=== PATIENT | male | born 1955 | race Caucasian/White ===

== ENCOUNTER 2021-11-03 21:15 | Inpatient (IN) | payer OTHER ==
[~2021-11-03] VITALS: Ht 182.9 cm; Wt 81.2 kg
--- NOTE | ~2021-11-03 | HC ---
[facility] [place] [address] CONSULTATION Name: NICOLÁS RYAN Room #: 251-P ADM IN M.R.#: [id number] Admission: 11/03/21 Attend Phys: Marlon Thorpe MD Discharge: Date of : 57 Report #: [id number] THIS REPORT FOR: cc: KENNEY - Hoda family physician/PCP FAM - No family physician/PCP Minesh Walker MD ~ DATE OF SERVICE: 11/04/2021 HISTORY OF PRESENT ILLNESS: This is a 66-year-old male patient who was evaluated by me. By: 2104 [id number] Minesh Walker MD /nt
--- NOTE | ~2021-11-03 | HC ---
[facility] [place] [address] CONSULTATION Name: NICOLÁS RYAN Room #: 251-P [facility] IN M.R.#: [id number] Admission: 11/03/21 Attend Phys: Marlon Thorpe MD Discharge: Date of : 57 Report #: [id number] THIS REPORT FOR: cc: KENNEY - No family physician/PCP FAM - No family physician/PCP Minesh Walker MD ~ DATE OF SERVICE: 11/04/2021 HISTORY OF PRESENT ILLNESS: This is a 66-year-old male patient who was evaluated by me for a followup care for the stroke. This patient was admitted yesterday from Emergency Room with aphasia and right-sided weakness. He came to Emergency Room. He was evaluated by [facility]. They gave TPA to the patient. After that they admitted the patient. Today a routine Neurology consultation was requested to follow up this patient. I reviewed the records from Emergency Room. The patient had presented with a stroke with NIH of 13 and [facility] was consulted and looks like TPA was given. At that time, the neurologist also did CT angiogram, which showed occlusion of the left internal carotid artery with the bifurcation and looks like the whole artery is occluded. REVIEW OF SYSTEMS: According to the son, the patient had a stroke in the eye. When I asked him to elaborate, he says that he lost his vision for several minutes. [facility] Room. He does not remember which eye it was. They do not know what workup was done. The patient's biggest vascular risk factor is that he smokes. He had some GI issues in the past, but according to the son he does not have any other ENT, cardiac, respiratory, GI, , musculoskeletal, constitutional, dermatological, hematological, psychiatric, throat, allergic symptoms associated with present symptomatology. PAST MEDICAL HISTORY: Positive for TIA. I do not know what side it was. From description, it looks like amaurosis fugax. FAMILY HISTORY: Negative for stroke. SOCIAL HISTORY: He is a heavy smoker.: He does not use alcohol on a regular basis. PHYSICAL EXAMINATION: VITAL SIGNS: Blood pressure is 154/70, respirations 22, pulse is 77. GENERAL: He is a well-developed individual. HEENT: He does not appear to have any hearing problems. He does not have any dysmorphic features of the face. NECK: He does not have any thyroid mass. [facility] [address] [place] [address] CONSULTATION Name: NICOLÁS RYAN Room #: 251-P [facility] IN ..#: [id number] Admission: 11/03/21 Attend Phys: Marlon Thorpe MD Discharge: Date of : 57 Report #: [id number] CARDIAC: Does not appear to be showing any atrial fibrillation. RESPIRATORY: Appears unremarkable. NEUROLOGIC: Indicate he was alert. He had no speech output, but he was able to follow simple commands most of the time. I could not do any further cognitive evaluation in this patient because of his aphasia. His cranial nerve examination was attempted. There is a question of facial weakness of right side, but I cannot tell. Visual dawkins were attempted and he could not cooperate. Rest of the cranial nerve examination appeared noncontributory. He moved both sides. He did not understand the instructions to do a good motor examination. No sensory examination was possible. Reflexes still appeared to be symmetrical. He could not cooperate with the fundus. He does not understand the instruction to do the cerebellar sign. EXTREMITIES: There does not appear to be any edema or cyanosis or jaundice. LABORATORY DATA: Indicate an ESR of 5. LDL is 160. DIAGNOSTIC DATA: CT angio and MRI were reviewed. MRI showed a pretty good sized stroke in the left cerebral hemisphere. IMPRESSION AND PLAN: Left hemispheric cerebrovascular accident, which is large and it is most likely because of occlusion of the left carotid artery. If his amaurosis fugax was also on the left side 5 years ago, then it may have some correlation, otherwise it does not. In anyway, the carotid is completely blocked and the patient's stroke is complete. Not much we can do at this stage. I will suggest doing a CT scan of the head tomorrow. If that does not show any hemorrhage, then the patient can be started on antiplatelet therapy. He need intensive statin therapy because of increased LDL. It is mandatory that he stop smoking. We will see what his echocardiogram shows. As an outpatient, he may need 30-day event monitor, but the stroke appeared to be secondary to occlusion of the left carotid artery. I discussed all of it with the patient and the son and Teleneurology will follow up this patient with you from tomorrow. By: 11 0126 Minesh Walker MD /nt
[2021-11-03 21:47] LABS: ABSOLUTE NEUTROPHILS 5.5 thou/uL (1.4-8.2); BASOPHILS 0.3 % (0.0-2.0); EOSINOPHILS 2.5 % (0.0-3.0); HEMATOCRIT 42.7 % (42.0-52.0); HEMOGLOBIN 14.5 gm/dL (14.0-18.0); LYMPHOCYTES 26.7 % (24.0-44.0); MCH 31.8 pg (26.0-34.0); MCHC 33.8 g/dL (28.0-37.0); MCV 93.9 fL (80.0-100.0); MONOCYTES 7.2 % (1.0-8.0); PLATELET COUNT 192 thou/uL (150-400); POLYS 63.3 % (36.0-66.0); RBC 4.55 mil/uL (4.50-6.00); RDW 13.2 % (10.5-14.5); WBC 8.7 thou/uL (4.0-11.0)
[2021-11-03 21:58] LABS: CALCIUM 8.4 mg/dL (8.5-10.1); CREATININE 1.1 mg/dL (0.7-1.3); POTASSIUM 3.6 mmol/L (3.5-5.1)
[2021-11-03 22:09] LABS: APTT 24.7 Seconds (24.5-32.8); INR 0.96; PROTIME 10.5 Seconds (10.5-12.1)
[2021-11-03 22:14] LABS: ALBUMIN 3.8 g/dL (3.4-5.0); TOTAL BILIRUBIN 0.2 mg/dL (0.2-1.0); TOTAL PROTEIN 7.2 g/dL (6.4-8.2)
[2021-11-04] VITALS (42 sets, daily range): BP systolic 123–218; BP diastolic 44–128
[2021-11-04 00:27] LABS: CHOLESTEROL 218 mg/dL (<200); HDL CHOLESTEROL 38 mg/dL (>40); LDL CHOLESTEROL 160 mg/dL (<100); SERUM ASSESSMENT Clear; TC:HDL 5.7 Ratio (Not establshd); TRIGLYCERIDE 101 mg/dL (<150); VLDL 20 mg/dL (<40)
--- NOTE | 2021-11-04 06:48 | NUR ---
PT TRANSFERRED TO UNIT AT 0200 WITH WALLET, SHOES, CELL PHONE, COAT, SHIRT, UNDERWEAR, SOCKS. PT APHASIC WITH RIGHT SIDED WEAKNESS. FOLLOWING STROKE/tPA PROTOCOL. WILL FOLLOW POC.
--- NOTE | 2021-11-04 08:13 | EKG ---
[address] [address] ELECTROCARDIOGRAM REPORT Name: NICOLÁS RYAN Room #: 251-P ADM IN M.R.#: [id number] Admission: 11/03/21 Attend Phys: Yahir Buenrostro MD Discharge: Date of : 57 Report #: [id number] [facility] ED Test Date: 2021-11-03 Test Time: 22:15:10 Pat Name: NICOLÁS RYAN Department: Room: [facility] Gender: M Liquor Inspector: rubia fofana : 1955 Requested By: Roge Carranza Order Number: [id number] MD: Abdoul Rivas Measurements Intervals [place] Rate: 79 P: 43 FL: 149 QRS: 42 QRSD: 98 T: 41 QT: 384 QTc: 441 Interpretive Statements Sinus rhythm No previous ECG available for comparison Electronically Signed On 11-04-2021 8:12:59 [employer] by Abdoul Rivas [email or web address] <ELECTRONICALLY SIGNED> By: Abdoul Rivas MD, [facility] 11/04/21 0812 2215 2215 Abdoul Rivas MD, FACC /EPI
--- NOTE | 2021-11-04 08:51 | NUR ---
PATIENT SERVICES CLERK TO CONSULT PATIENT. PT LAYING IN BED. PT APHASIC AND APPEARS FRUSTRATED. NIHSS-12 NOTED. DIFFICULTY WITH CONTROL OF RIGHT ARM. PT GIVEN PAPER AND PEN TO TRY TO COMMUNICATE. PT UNABLE TO HOLD PEN IN HAND. PT REASSURRED REHAB WILL WORK WITH HIM TO TRY AND IMPROVE HIS SYMPTOMS. PT TEARFUL. PT EDUCATED ON STROKE AND EDUCATED ON PLAN OF CARE. I WILL CONTINUE TO FOLLOW THIS PATIENT THROUGHOUT HIS JOURNEY.
--- NOTE | 2021-11-04 09:30 | NUR ---
Speech trying to work with ced. Cm unsuccessful in getting him to be able to provided contact or number for friend or family. Speech tried as well. He tried to use his cell phone but was not able to work his phone or look through his wallet for ID information. He showed signs of agitation. He has difficulty speaking, unable to talk, he does make sounds from his mouth. he tries to nod. Will cont following as needed.
[2021-11-05] VITALS (29 sets, daily range): BP systolic 84–187; BP diastolic 28–118
--- NOTE | 2021-11-05 00:04 | NUR ---
PT TAKEN TO CT AFTER THIS RN SPOKE WITH CASHIER MANAGER. RN AND PATIENT WAITED IN CT FOR TECH FOR APPROXIMATELY 10 MIN WITHOUT CASHIER MANAGER AVAILABLE. THIS RN ATTEMPTED TO CALL CT MOBILE AND WAS NOT ABLE TO GET A HOLD OF CASHIER MANAGER. RN BROUGHT PT BACK TO ICU BEING UNABLE TO OBTAIN CT. WILL ATTEMPT TO OBTAIN CT ONCE CASHIER MANAGER AVAILABLE. WILL CONTINUE TO MONITOR.
[2021-11-05 02:06] LABS: GLYCOHEMOGLOBIN (HGB A1C) 5.6 % (4.8-5.6)
[2021-11-05 06:18] LABS: HEMATOCRIT 41.1 % (42.0-52.0); HEMOGLOBIN 14.3 gm/dL (14.0-18.0); MCH 32.2 pg (26.0-34.0); MCHC 34.9 g/dL (28.0-37.0); MCV 92.3 fL (80.0-100.0); RBC 4.45 mil/uL (4.50-6.00); RDW 13.3 % (10.5-14.5); WBC 7.2 thou/uL (4.0-11.0)
[2021-11-05 06:31] LABS: CALCIUM 8.7 mg/dL (8.5-10.1); POTASSIUM 3.7 mmol/L (3.5-5.1)
--- NOTE | 2021-11-05 10:26 | 2DMMODE ---
[facility] [place] [address] [place] [address] 2 D/M-MODE ECHOCARDIOGRAM Name: NICOLÁS RYAN Room #: 251-P ADM IN M.R.#: [id number] Admission: 11/03/21 Attend Phys: Marlon Thorpe MD Discharge: Date of : 57 Report #: [id number] THIS REPORT FOR: cc: FAM - No family physician/PCP FAM - No family physician/PCP Dallas Valencia MD ~ APPROVED REPORT Study performed: 11/05/2021 09:15:02 EXAM: Comprehensive 2D, Doppler, and color-flow Echocardiogram Patient Location: Echo lab Room #: [facility] Status: routine BSA: 1.96 HR: 58 bpm BP: 145/73 mmHg Rhythm: NSR Other Information Study Quality: Adequate Technically limited study due to inability to position patient. Indications CVA/TIA 2D Dimensions IVSd: 11.11 (7-11mm) LVOT Diam: 24.05 (18-24mm) LVDd: 55.39 mm PWd: 10.66 (7-11mm) Ascending Ao: 39.21 (22-36mm) LVDs: 44.43 (25-40mm) Left Atrium: 35.54 (27-40mm) Aortic Root: 36.76 mm LV Single Plane 4CH: 59.31 % LV Single Plane 2CH: 59.16 % Volumes Left Atrial Volume (Systole) Single Plane 4CH: 36.92 mL Single Plane 2CH: 32.97 mL Biplane LA Volume: 38.00 mL LA ESV Index: 20.00 mL/m2 Aortic Valve AoV Peak Shelton.: 1.22 m/s [facility] [address] [address] 2 D/M-MODE ECHOCARDIOGRAM Name: RYANNICOLÁS Room #: 251-P [facility] IN [facility].#: [id number] Admission: 11/03/21 Attend Phys: Marlon Thorpe MD Discharge: Date of : 57 Report #: [id number] AO Peak Gr.: 5.93 mmHg LVOT Max P.87 mmHg LVOT Max V: 0.85 m/s DANNIELLE Vmax: 3.16 cm2 Mitral Valve E/A Ratio: 0.8 MV Decel. Time: 2923.26 ms MV E Max Shelton.: 0.31 m/s MV A Shelton.: 0.39 m/s MV PHT: 847.74 ms IVRT: 124.57 ms Pulmonary Valve PV Peak Shelton.: 0.92 m/s PV Peak Gr.: 3.37 mmHg Tricuspid Valve TR Peak Shelton.: 1.97 m/s TR Peak Gr.: 15.59 mmHg Left Ventricle The left ventricle is normal size. There is normal LV segmental wall motion. There is normal left ventricular wall thickness. Left ventricular systolic function is normal. The left ventricular ejection fraction is within the normal range. LVEF is 55-60%. Grade I - abnormal relaxation pattern. Right Ventricle The right ventricle is normal size. The right ventricular systolic function is normal. Atria The left atrium size is normal. Unable to perform a bubble study. The right atrium size is normal. Aortic Valve Aortic valve is trileaflet. No aortic regurgitation is present. There is no aortic valvular stenosis. Mitral Valve The mitral valve is normal in structure. There is no mitral valve regurgitation noted. No evidence of mitral valve stenosis. Tricuspid Valve The tricuspid valve is normal in structure. Trace tricuspid regurgitation. Unable to assess PA pressure. [facility] [address] [place] [address] 2 D/M-MODE ECHOCARDIOGRAM Name: NICOLÁS RYAN Room #: 251-P ADM IN .R.#: [id number] Admission: 11/03/21 Attend Phys: Marlon Thorpe MD Discharge: Date of : 57 Report #: [id number] Pulmonic Valve The pulmonary valve is normal in structure. There is no pulmonic valvular regurgitation. Great Vessels The aortic root is normal in size. IVC is normal in size and collapses >50% with inspiration. The pulmonary artery is normal. Pericardium There is no pericardial effusion. There is no pleural effusion. <Conclusion> The left ventricle is normal size. There is normal left ventricular wall thickness. Left ventricular systolic function is normal. Grade I - abnormal relaxation pattern. The right ventricle is normal size. The left atrium size is normal. Aortic valve is trileaflet. There is no mitral valve regurgitation noted. Unable to perform a bubble study. <ELECTRONICALLY SIGNED> By: Dallas Valencia MD 11/05/21 1026 1026 1026 Dallas Valencia MD /INF
--- NOTE | 2021-11-05 15:37 | NUR ---
Both son's brennan # [phone] and etta visited today. Cm spoke with brennan via phone call, intro to case management and discharge planning. CHRISTIANE coughlin was self employed, lives in house alone. Independent. No dme, no hh or rehab in the past. Brennan not been able to found his ss number but he might have life insurance so we are looking for that. 5N consult.
--- NOTE | 2021-11-05 17:45 | NUR ---
ASSUMED CARE OF PATIENT AT APPX 1630 FROM THE ICU. PATIENT SETTLED IN ROOM, VS OBTAINED, TELE PLACED ON. PATIENT IS NONVERBAL AND GETS FRUSTRATED EASILY. CONTINUES ON A PUREED DIET WITH HONEY THICKENED LIQUIDS, LITTLE DESIRE TO EAT DINNER. SON AT BEDSIDE AT THIS TIME. PATIENT PROGRESSING TOWARD POC.
[2021-11-06 04:45] VITALS: BP 163/84
[2021-11-06 08:00] VITALS: BP 149/85
[2021-11-06 11:30] VITALS: BP 163/107
[2021-11-06 12:00] VITALS: BP 167/93
[2021-11-06 16:30] VITALS: BP 170/93
[2021-11-06 19:28] VITALS: BP 145/92
--- NOTE | 2021-11-06 23:07 | NUR ---
PT ALERT AND ORIENTED. FOLLOWS COMMANDS APPROPRIATELY. SPEECH IS SLURRED AND MAINLY INCOMPREHENSIBLE. SENSATION IS NOW EQUAL ON BOTH SIDES ACCORDING TO PT ON NIH SCALE. NO C/OPAIN. NO S/S DISTRESS. INC X1 IN BED. BED CHANGED.NEW GOWN APPLIED. BED DOWN CALL LIGHT IN REACH. WILL CONTINUE TO MONITOR PT FOR CHANGES.
--- NOTE | 2021-11-07 00:42 | NUR ---
PT RESTING QUIETLY. NO S/S DISTRESS. NO C/O PAIN.
[2021-11-07 03:34] LABS: HEMATOCRIT 43.7 % (42.0-52.0); HEMOGLOBIN 14.9 gm/dL (14.0-18.0); MCH 31.5 pg (26.0-34.0); MCV 92.4 fL (80.0-100.0); RBC 4.73 mil/uL (4.50-6.00); RDW 12.9 % (10.5-14.5)
[2021-11-07 03:41] LABS: CALCIUM 8.6 mg/dL (8.5-10.1); CREATININE 0.9 mg/dL (0.7-1.3); POTASSIUM 3.4 mmol/L (3.5-5.1)
[2021-11-07 03:42] VITALS: BP 157/87
[2021-11-07 07:30] VITALS: BP 138/82
--- NOTE | 2021-11-07 07:37 | NUR ---
PT PROGRESSING TOWARDS D/C GOALS. VSS AFEBRILE THIS AM .SENSATION HAS IMPROVED. PT FEELS EQUAL PRESSURE SENSATION ON BOTH SIDES. STRENGHT ALSO GETTIMG BACK TO NORMAL. SPEECH REMAINS SLURRED WITH IMCOMPREHENSIBLE SOUNDS AND PT GETRS FRUSTRATED WHILE ATTEMPTING TO COMMUNICATE.
[2021-11-07 11:15] VITALS: BP 169/88
[2021-11-07 15:30] VITALS: BP 182/91
--- NOTE | 2021-11-07 16:18 | NUR ---
ASSUMED CARE OF PATIENT AT 0700. A&OX4, NONVERBAL, ON RA, SR ON TELE, AND NO C/O PAIN. IVF STILL RUNNING AT 126ML/HR. NIH = 5. 10MG LABATOLOL GIVEN ONCE FOR BP OF 182/91. SON, YOVANA, CALLED TO DISCUSS THE PATIENTS BROTHERS COMING UP AND GETTING THE PATIENT UPSET. EXPLAINED WE WILL WATCH VISITORS AND TRY TO NOT ALLOW THEM TO SEE PATIENT AGAIN. PATIENT STILL GETS FRUSTRATED EASILY AND STILL HAS NO INTEREST IN EATING HIS PUREED DIET OR HONEY THICKENED LIQUIDS. PLANS FOR PATIENT TO GO TO 5N ONCE MEDICALLY STABLE. PATIENT PROGRESSING TOWARDS POC.
[2021-11-07 19:15] VITALS: BP 145/84
[2021-11-08 03:40] VITALS: BP 119/72
--- NOTE | 2021-11-08 05:27 | NUR ---
PATIENTCARES ASSUMED AT SHIFT CHANGE. PATIENT WAS ASSESSED AND MEDS PASSED. PATIENTS FIRST C/O HIS ROOM IS VERY COLD. TURNED UP THE THERMOSTATE AND WRAPPED HIM IN A WARM BLANKET. PATIENT HAS SLURRED SPEECH. NOT ALL WORDS CAN BE IDENTIFIABLE, ROUNDS DONE. THE BED IS IN LOW AND LOCKED POSITION.
[2021-11-08 07:30] VITALS: BP 147/86
[2021-11-08] MEDS ORDERED: LIPITOR80 MG PO (11:09)
[2021-11-08] MEDS ORDERED: BAYER CHEWABLE81 MG PO (11:09)
[2021-11-08 11:30] VITALS: BP 167/85
--- NOTE | 2021-11-08 11:56 | NUR ---
Discussed during los with the attending physician, going to dc home today and ok to vouch for 5 outpt speech visits here and ok to vouch for medication per PRODUCT DISTRIBUTION SPECIALIST. Faces[place] [facility] [place] [facility]. Cm visited with perry at bedside. he is no verbal, he was able to state ok after cm provided education on DC today. Perry provided cm with number [phone] on a [employer] card, and note that said call 1 hr before.
[2021-11-08 12:21] VITALS: BP 147/86
--- NOTE | 2021-11-08 12:51 | NUR ---
I have reviewed the documentation by DEEPALI MARQUEZ from 11/08/21 to 11/08/21 and I concur with it. SHADY PONCE, PT, DPT
[2021-11-08 15:43] VITALS: BP 147/86
--- NOTE | 2021-11-08 15:57 | NUR ---
DISCHARGED PATIENT. EXPLAINED DISCHARED ORDERS TO PATIENT AND FAMILY. GAVE PATIENT THE PREFILLED MEDICINES FROM PHARMACY. HIGHLIGHTES THE PHONE NUMBER FOR SPEECH THERAPY AND ALSO GAVE PATIENT THE APPOINTMENT TIME AND DATE FOR DISSABILITY AND [facility] WHICH IS SCHEDULED FOR 11/25/21 AT 2:30PM ON PATIENTS CELL PHONE.
[2021-11-08 16:01] VITALS: BP 147/86
[2021-11-08 23:06] LABS: SYPHILIS AB Non Reactive (Non Reactive)
--- NOTE | 2021-11-09 11:20 | NUR ---
Outpatient ST eval and tx script faxed to our outpt therapy dept along with his facesheet. Referral and plan for up to 5 [facility] ST visits discussed with outpt ST and their director (Lilian)is sending them a confirmation email as well.
== END 2021-11-08 17:27 | disposition home or self-care (01) | DRG 62 ==
LOC: ER 21:15 → EROBS 23:36 → ICU 23:36 → 2N 11-05 16:34
PROVIDERS: Emergency Medicine; Nurse Practitioner Family; Psychiatry & Neurology Neuromuscular Medicine; ADMIT Hospitalist; ATTEND Hospitalist
DX: I63.231 Cerebral infarction due to unspecified occlusion or stenosis of right carotid arteries (principal); G81.91 Hemiplegia, unspecified affecting right dominant side; Z20.822 Contact with and (suspected) exposure to COVID-19; I10 Essential (primary) hypertension; F17.210 Nicotine dependence, cigarettes, uncomplicated
CPT/HCPCS: 10078; 10081